=== PATIENT | female | born 1945 ===

== ENCOUNTER → 2016-05-10 | Day surgery (SDC) | payer MEDICARE, OTHER ==
[2016-05-10] VITALS (11 sets, daily range): BP systolic 128–162; BP diastolic 76–92
[~2016-05-10] VITALS: Ht 160 cm; Wt 79.4 kg
[~2016-05-10] MED LIST: Alfentanil 2ml Inj ONE; Atropine Inj 1mg/10ml Syr IV PRN; BSS 15ml BTL ONE; BSS 500ml btl ONE; Bupivacaine 0.75% 30ml vial INJ ONE; Cyclopentolate 1% Opth Sol ONE; Dexamethasone 4mg/ml vial ONE; DiphenhydrAMINE 50mg/ml Inj IVP PRN; EPINEPHrine 1mg/1ml Amp ONE; Flurbiprofen 0.03% Opth Sol 2.5ml ONE; Gatifloxacin Opth Solution 0.5% ONE; Hydromorphone 0.5mg/0.5ml inj IVP PRN; Indocyanine Green 25mg Inj INJ ONE; Kenalog-10 5ml Inj ONE; Kenalog-40 1ml Vial ONE; Ketorolac 30mg Inj IV PRN; Ketorolac 60mg Inj IV PRN; LORazepam Inj 2mg/ml 1ml IV PRN; LR 1000ml 1,000 ML IVLG SCH; LR 1000ml ONE; Labetalol 5mg/ml 20ml vial IV PRN; Lidocaine 1% MPF 10mg/ml 5ml ONE; Lidocaine 2% MPF 5ml Vial INJ ONE; Maxitrol Opth Oint 3.5gm ONE; Meperidine 25mg/ml Inj IV PRN; Metoclopramide 10mg/2ml Inj IVP PRN; Midazolam 2mg/2ml Inj IVP PRN; Midazolam 2mg/2ml Inj ONE; NKM; NS Irrig 1000ml ONE; Norco 5mg/325mg tab ORAL PRN; Norco 7.5mg/325mg tab ORAL PRN; Oxycodone/Acetaminophen 5-325 ORAL PRN; Phenylephrine 2.5% Op Soln ONE; Povidone-Iodine 5% opth solution ONE; Pred Forte 1% Opth Susp 1ml ONE; Pred Forte 1% Opth Susp 1ml RIGHT EYE ONE; Propofol 10mg/ml 20ml IV ONE; Sodium Hyaluronate 10 mg/ml 0.85ml ONE; Sterile Water Irrig 1000ml IRRIG ONE; Tetracaine 0.5% Opth Soln ONE; fentaNYL 100 mcg/2 mL IV PRN
--- NOTE | 2016-05-10 06:20 | Pre-Procedure Note/Attestation ---
Pre-Procedure Note/Attestation Complete Prior to Procedure Planned Procedure: right Procedure Narrative: PPV, kenalog injection, ICG assisted membrane peel Right eye Indications for Procedure Pre-Operative Diagnosis: Macular pucker R eye Attestation I attest that I discussed the nature of the procedure; its benefits; risks and complications; and alternatives (and the risks and benefits of such alternatives ), prior to the procedure, with the patient (or the patient's legal product support representative). I attest that, if there was a reasonable possibility of needing a blood transfusion, the patient (or the patient's legal product support representative) was given the [facility] standardized written summary, pursuant to the Mike Brianna Blood Safety Act ([place] Health and Safety Code # 1645, as amended). I attest that I re-evaluated the patient just prior to the surgery and that there has been no change in the patient's H&P, except as documented below: PILY PARSONS May 10, 2016 06:20
[2016-05-10 06:50] LABS: BASOPHILS % (AUTO) 0.9 % (0.0-2.0); EOSINOPHILS % (AUTO) 4.1 % (0.0-3.0); LYMPHOCYTES % (AUTO) 25.3 % (20.0-45.0); MEAN CORPUSCULAR HEMOGLOBIN 30.7 PG (27.0-31.0); MEAN CORPUSCULAR HGB CONC 32.9 G/DL (32.0-36.0); MEAN CORPUSCULAR VOLUME 93 FL (80-99); MEAN PLATELET VOLUME 7.7 FL (6.5-10.1); NEUTROPHILS % (AUTO) 63.7 % (45.0-75.0); PLATELET COUNT 276 K/UL (150-450); RED BLOOD COUNT 4.84 M/UL (4.20-5.40); RED CELL DISTRIBUTION WIDTH 12.7 % (11.6-14.8); WHITE BLOOD COUNT 9.5 K/UL (4.8-10.8)
[2016-05-10] MEDS: Phenylephrine 2.5% Op Soln RIGHT EYE SCH ×3 (06:56→07:08)
[2016-05-10] MEDS: Gatifloxacin Opth Solution 0.5% RIGHT EYE SCH ×3 (06:56→07:08)
[2016-05-10] MEDS: Cyclopentolate 1% Opth Sol RIGHT EYE SCH ×3 (06:56→07:08)
[2016-05-10] MEDS: Flurbiprofen 0.03% Opth Sol 2.5ml RIGHT EYE SCH ×3 (06:56→07:07)
[2016-05-10 07:07] LABS: ANION GAP 13 (5-15); CALCIUM 9.5 mg/dL (8.6-10.2); CARBON DIOXIDE 26 mEQ/L (20-30); CHLORIDE 103 mEQ/L (98-107); CREATININE 0.6 mg/dL (0.5-0.9); GLOMERULAR FILTRATION RATE > 60 mL/min (>60); HEMOLYSIS 3; SODIUM 142 mEQ/L (135-145)
--- NOTE | 2016-05-10 07:57 | Anethesia Preoperative Eval ---
Anesthesia Pre-op PMH/ROS General Date of Evaluation: May 10, 2016 Time of Evaluation: 07:26 Anesthesiologist: Kimmy ASA Score: ASA 3 Mallampati Score Class I : Soft palate, uvula, fauces, pillars visible Class II: Soft palate, uvula, fauces visible Class III: Soft palate, base of uvula visible Class IV: Only hard plate visible Mallampati Classification: Class III Surgeon: Nader Diagnosis: Macular Pucker R Eye Surgical Procedure: Vitrectomy OD Anesthesia History: none Family History: no anesthesia problems Allergies: Coded Allergies: No Known Allergies (Unverified , 05/09/16) Medications: see eMAR Past Medical History Cardiovascular: Reports: HTN Endocrine: Reports: DM Other: obesity Anesthesia Pre-op Phys. Exam Physician Exam Last Vital Signs Date Time Temp Pulse Resp B/P Pulse Ox O2 Delivery O2 Flow Rate FiO2 05/10/16 06:59 97.5 74 18 153/84 98 Room Air Constitutional: NAD Neurologic: CN 2-12 intact Cardiovascular: RRR Respiratory: CTA Gastrointestinal: S/NT/ND Airway Exam Mallampati Score: Class III MO: limited ROM: limited Teeth: missing, intact Anesthesia Pre-op A/P Labs Hematology Test 05/10/16 06:15 White Blood Count 9.5 K/UL (4.8-10.8) Red Blood Count 4.84 M/UL (4.20-5.40) Hemoglobin 14.9 G/DL (12.0-16.0) Hematocrit 45.2 % (37.0-47.0) Mean Corpuscular Volume 93 FL (80-99) Mean Corpuscular Hemoglobin 30.7 PG (27.0-31.0) Mean Corpuscular Hemoglobin Concent 32.9 G/DL (32.0-36.0) Red Cell Distribution Width 12.7 % (11.6-14.8) Platelet Count 276 K/UL (150-450) Mean Platelet Volume 7.7 FL (6.5-10.1) Neutrophils (%) (Auto) 63.7 % (45.0-75.0) Lymphocytes (%) (Auto) 25.3 % (20.0-45.0) Monocytes (%) (Auto) 6.0 % (1.0-10.0) Eosinophils (%) (Auto) 4.1 % (0.0-3.0) H Basophils (%) (Auto) 0.9 % (0.0-2.0) Chemistry Test 05/10/16 06:15 Sodium Level 142 mEQ/L (135-145) Potassium Level 4.0 mEQ/L (3.4-4.9) Chloride Level 103 mEQ/L (98-107) Carbon Dioxide Level 26 mEQ/L (20-30) Anion Gap 13 (5-15) Blood Urea Nitrogen 16 mg/dL (7-23) Creatinine 0.6 mg/dL (0.5-0.9) Estimat Glomerular Filtration Rate > 60 mL/min (>60) Glucose Level 119 mg/dL (74-106) H Calcium Level 9.5 mg/dL (8.6-10.2) Risk Assessment & Plan Assessment: ASA 3 Plan: GA Status Change Before Surgery: No Alexandro Oneal MD May 10, 2016 07:57
--- NOTE | 2016-05-10 07:59 | Immediate Post-Op Evaluation ---
Immediate Post-Op Evalulation Immediate Post-Op Evalulation Procedure: Vitrectomy OD Date of Evaluation: May 10, 2016 Time of Evaluation: 08:28 IV Fluids: 1000 LR Blood Products: 0 Estimated Blood Loss: 1 Urinary Output: 0 Blood Pressure Systolic: 162 Blood Pressure Diastolic: 91 Pulse Rate: 76 Respiratory Rate: 16 O2 Sat by Pulse Oximetry: 96 Temperature (Fahrenheit): 97.6 Pain Score (1-10): 1 Nausea: No Vomiting: No Complications 0 Patient Status: awake, reacts, patent, none Hydration Status: adequate Alexandro Oneal MD May 10, 2016 07:59
--- NOTE | 2016-05-10 08:00 | 48 Hour Post Anesthesia Eval ---
Post Anesthesia Evaluation Procedure: Vitrectomy OD Date of Evaluation: May 10, 2016 Time of Evaluation: 10:43 Blood Pressure Systolic: 166 0: 83 Pulse Rate: 77 Respiratory Rate: 18 Temperature (Fahrenheit): 98.2 O2 Sat by Pulse Oximetry: 96 Airway: patent Nausea: No Vomiting: No Pain Intensity: 1 Hydration Status: adequate Cardiopulmonary Status: Stable Mental Status/LOC: patient returned to baseline Follow-up Care/Observations: 0 Post-Anesthesia Complications: 0 Follow-up care needed: ready to discharge Alexandro Oneal MD May 10, 2016 08:00
--- NOTE | 2016-05-10 08:31 | Brief Operative Note ---
Immediate Post Operative Note Operative Note Chief Complaint: Distorted and blurred vision R eye Pre-op Diagnosis: Macular pucker R eye Procedure: PPV, ICG assisted membrane peel, Kenalog injection L eye 1.5mg Post-op Diagnosis: same as pre-op Surgeon: Nader Anesthesiologist: Kimmy Anesthesia: MAC Specimen: none Complications: none Condition: stable Estimated Blood Loss: none Drains: none Implant(s) used?: No PILY PARSONS May 10, 2016 08:31
--- NOTE | 2016-05-10 11:29 | Pre-op HX & Phy Repo 2 SIG ---
DATE OF ADMISSION: 05/10/2016 PRESURGICAL INTERNAL MEDICINE HISTORY AND PHYSICAL REASON FOR EVALUATION: I was asked by Dr. Javier Doe, to see this 70-year-old female, who is going for elective surgery on the right eye. The patient has a macular pucker right eye. Please see full History and Physical by plisse machine operator, Dr. Javier Doe. The patient is Turkish speaking, information obtained from daughter at bedside. The patient's denies history of heart attack, chest pain, or palpitations. No history of respiratory problem. Denies history of hypertension. No history of stroke or seizures. Denies history of diabetes. No thyroid problem. No anemia. No renal failure. Denies history of GI bleeding or heartburn. PAST SURGICAL HISTORY: None. MEDICATIONS: Current medications, none. ALLERGIES: Not known. HABITS: No smoke or alcohol habits. No street drugs. FAMILY HISTORY: Mother from heart attack at age of 74 and father . PHYSICAL EXAMINATION: GENERAL: Alert, well-developed, well-nourished female in her 60s. No acute distress. BMI is 31 kilogram/meter2. VITAL SIGNS: Blood pressure 153/84, temperature 98.0 degrees Fahrenheit, pulse 74 regular, and O2 saturation 97% on room air. SKIN: Warm. Turgor normal. No diaphoresis. No rashes. LYMPHATICS: Lymph nodes not enlarged. HEENT: Head normocephalic. Ears, clear. No discharge. Eyes, full description per Dr. Javier Doe. Mouth, clear and moist. No dentures. Nose, clear. No discharge. NECK: Supple. No jugular vein distention. Carotids artery +2. Trachea midline. CHEST: No deformity or asymmetry. LUNGS: Clear to auscultation and percussion. HEART: Sinus rhythm. No ectopy. No murmur. No S3 or S4. ABDOMEN: Soft and benign. Liver and spleen not enlarged. EXTREMITIES: No peripheral edema. No varicose veins. No calf tenderness. GENITOURINARY INTACT: No dysuria. No CVA tenderness. NERVOUS SYSTEM: No tremor. No nystagmus. No asymmetry. LABORATORY DATA: Lab work, white blood cells 9.5, hemoglobin 14.9, and hematocrit 45.2. Sodium 142, potassium 4.0, chloride 103, BUN 16, creatinine 0.6 mg/dL, blood sugar 119, and calcium 9.5. Electrocardiogram, sinus rhythm 79 per minute, left axis deviation. The patient did not eat or drink from 10 p.m. last night. IMPRESSION: 1. Macular pucker, right eye. 2. Left axis deviation. 3. Hypertension on medication. 4. Obesity. Body mass index is 31 kg/m2. PLAN: Pars plana vitrectomy, 23 G membrane peeling right eye per Dr. Javier Doe. CONCLUSION: The patient's has a slightly elevated systolic blood pressure and she is not on any medications. Laboratory work shows a slight elevation of blood sugar 119, fasting and she is overweight with BMI is 31.0. The patient did not eat or drink from last night. The patient's condition optimized for surgery. Thank you very much, Dr. Deo, for privilege to participate presurgical care of this interesting patient. Silva eWst M.D. DR: Tito JOB#: [id number] CC:
--- NOTE | 2016-05-10 16:03 | Cardiology Report ---
APPROVED REPORT EKG Measurement Heart [id number] Normal sinus rhythm Left axis deviation Abnormal ECG
--- NOTE | 2016-05-10 17:59 | Operative Note - Dictated ---
DATE OF OPERATION: 05/10/2016 PREOPERATIVE DIAGNOSIS: Dense epiretinal membrane, right eye. POSTOPERATIVE DIAGNOSIS: Dense epiretinal membrane, right eye. PROCEDURES: 1. Pars plana vitrectomy. 2. ICG-assisted membrane peel. 3. Kenalog injection, right eye. SURGEON: Javier Doe M.D. BREWERY PUMPER: None. ANESTHESIOLOGIST: Alexandro Oneal M.D. JUSTIFICATION FOR SURGERY: This 70-year-old lady noted distortion and blurring of vision in the right eye. She was found to have a dense epiretinal membrane. BRIEF NOTE: The patient was brought to the operative room and placed on table in supine position. After a time-out was performed and agreed upon by the staff and initial monitoring secured by Dr. Oneal, retrobulbar and Van Lint blocks were given in the standard way. When the blocks had taken effect, she was prepped and draped in the normal manner. The lid speculum was inserted into the right eye. Using a 23-gauge trocar system, cannulas were placed in all except infranasal quadrant. Infusion secured inferotemporally. Vitrectomy was begun posterior to the lens taking care to avoid contact. A central core vitrectomy was done followed by peripheral vitrectomy leaving a small vitreous skirt. A posterior-viewing lens was then inserted. Kenalog had been used to aid in visualization of the vitreous and a small dressing of Kenalog remained on the posterior pole. The epiretinal membrane was engaged and gently peeled from the surface of the retina. Because mild distortion remained, it was elected to remove the internal limiting lamina. For this, two drops of ICG solution in D5 was injected over the macula for a brief period to stain the ILM. This was evacuated and the ILM engaged supranasally. It was then gently peeled from the surface of the retina in an area roughly 2 disc diameters in size. No complications were encountered. Scleral depression was done and no peripheral breaks, tears, or detachments were seen. Additional Kenalog 1.5 mg was injected prior to removing the cannulas from the eye. All wounds were noted to be self-sealing. Subconjunctival Decadron and gentamicin were then injected and atropine and Maxitrol ointments were instilled. The eye was patched and shielded and the patient was taken to recovery in excellent condition. There were no complications. Javier Doe M.D. DR: PEREZ JOB#: [id number] CC: Javier Doe M.D.
--- NOTE | 2016-05-11 14:48 | Pre-op HX & Phy Repo 2 SIG ---
DATE OF SURGERY: 05/10/2016 PREOPERATIVE DIAGNOSIS: Dense epiretinal membrane, right eye. BRIEF NOTE: This is the first [facility] admission for this patient. This is a very nice 70-year-old lady who complained of poor and distorted vision in the right eye. PAST OCULAR HISTORY: Negative for surgery or laser. She has been told of cataracts in the past. PAST MEDICAL HISTORY: Negative according to the patient. SOCIAL HISTORY: She does not smoke or drink. ALLERGIES: She has no known allergies. PHYSICAL EXAMINATION: Best vision at the time of admission was 20/80 in the right eye and 20/25 on the left with pressures of 18. The anterior segment showed significant cataracts in either eye. Fundus examination of the right eye showed a dense epiretinal membrane with macular distortion. There was a posterior vitreous separation. The left fundus showed mild epiretinal membrane that appeared subclinical. A similar posterior vitreous detachment was seen. General physical examination will be done by Dr. West. ASSESSMENT: 1. Dense macular pucker, right eye. 2. Moderate cataracts. PLAN: The plan is to perform a pars plana vitrectomy with peeling of the epiretinal membrane on the right. There is a possibility of endolaser. A gas injection or Kenalog may be given. ICG dye may be used to complete the peel. The risks and benefits of surgery gone over with the patient with potential infection, worsening of the cataract, retinal detachment, and loss of the eye. The risk of anesthesia was discussed. The patient understands and consents to the surgery to be performed tomorrow morning. Javier Doe M.D. DR: KARIME JOB#: [id number] CC:
== END | disposition home or self-care (01) ==
LOC: SUR 05:42
DX: H35.371 Puckering of macula, right eye (principal); I10 Essential (primary) hypertension; E11.9 Type 2 diabetes mellitus without complications; E66.9 Obesity, unspecified; Z68.31 Body mass index [BMI] 31.0-31.9, adult
CPT/HCPCS: 36415; 67042; 80048; 85025; 93005; J0171; J1100; J2250; J2704; J3301; J3470; J3490; J7120; 94003; 94150